=== PATIENT | male | born 1990 | race African-American/Black ===

== ENCOUNTER 2021-04-14 13:18 | Emergency (ER) | payer SELFPAY ==
[~2021-04-14] VITALS: Ht 177.8 cm; Wt 65.0 kg
[2021-04-14] MEDS ORDERED: IBUPROFEN 600MG TABLET PO ONE (13:45)
[2021-04-14] MEDS ORDERED: LIDOCAINE HCL/EPINEPHRINE 1%-EPI 1:100,000 20 ML VIAL INFIL ONE (13:45)
[2021-04-14] MEDS ORDERED: TETANUS, DIPHTHERIA, PERTUSSIS VAC/PF 0.5ML (>7YR OLD) IM ONE (13:45)
[2021-04-14 14:05] VITALS: BP 122/70
[2021-04-14] MEDS ORDERED: IBUP-2029 MT (14:50)
[2021-04-14] MEDS ORDERED: CEPH500C2 MT (14:50)
== END 2021-04-14 15:48 | disposition home or self-care (01) ==
LOC: ER 13:18
DX: S01.511A Laceration without foreign body of lip, initial encounter (principal); Y08.89XA Assault by other specified means, initial encounter; Y93.9 Activity, unspecified; Y92.9 Unspecified place or not applicable
CPT/HCPCS: 12011; 90471; 90715; 99283; J3490